=== PATIENT | female | born 1975 | race Two or more races ===

== ENCOUNTER 2024-01-18 10:16 | Outpatient (CLI) | payer OTHER | END 2024-01-18 10:28 | disposition home or self-care (01) | LOC: TOM 10:16 | PROVIDERS: ATTEND Internal Medicine Gastroenterology | DX: I50.42 Chronic combined systolic (congestive) and diastolic (congestive) heart failure (principal); C55 Malignant neoplasm of uterus, part unspecified; Z12.11 Encounter for screening for malignant neoplasm of colon ==

== ENCOUNTER 2024-09-23 10:15 | Inpatient (IN) | payer OTHER ==
[~2024-09-23] VITALS: Ht 162.6 cm; Wt 78.5 kg
[2024-09-23 12:50] VITALS: BP 108/75
[2024-09-23] MEDS ORDERED: CYMBALTA30 MG PO (12:51)
[2024-09-23] MEDS ORDERED: SYNTHROID112 MCG PO (12:51)
[2024-09-23] MEDS ORDERED: SYNTHROID100 MCG PO (12:51)
[2024-09-23] MEDS ORDERED: METFORMIN HCL1000 MG (12:52)
[2024-09-23] MEDS ORDERED: LANOXIN125 MCG PO (12:52)
[2024-09-23] MEDS ORDERED: CARVEDILOL25 MG (12:52)
[2024-09-23] MEDS ORDERED: CAROSPIR25 MG/5 ML PO (12:53)
[2024-09-23] MEDS ORDERED: COZAAR100 MG PO (12:53)
[2024-09-23] MEDS ORDERED: AMLODIPINE-OLM1 EAC3 (12:53)
[2024-09-23] MEDS ORDERED: LIPITOR40 MG PO (12:54)
[2024-09-23] MEDS ORDERED: ZETIA10 MG PO (12:54)
[2024-09-23] MEDS ORDERED: HYDROCHLOROTHIA25 MG PO (12:54)
[2024-09-23] MEDS ORDERED: NOXIFOL-D32500 UNIT (12:55)
[2024-09-23 17:26] LABS: RH POSITIVE
[2024-09-25] MEDS ORDERED: POVIDONE-IODINE 118 ML BOTT TOP ONE (10:49)
[2024-09-25] MEDS ORDERED: CEFAZOLIN SODIUM 1,000 MG VIAL ONE ×2 (10:49→16:16)
[2024-09-25] MEDS ORDERED: HEMOSTATIC MATRIX WITH THROMBIN KIT TOP ONE (10:49)
[2024-09-25] MEDS ORDERED: METRONIDAZOLE/SODIUM CHLORIDE 500 MG/100 ML PIGGYBACK IV ONE ×2 (12:00→16:17)
[2024-09-25] MEDS ORDERED: CEFAZOLIN SODIUM 1,000 MG VIAL IV ONE (12:00)
[2024-09-25] MEDS ORDERED: HEMOSTATIC MATRIX WITH THROMBIN KIT TOP SCH (12:00)
[2024-09-25] MEDS ORDERED: OxyCODONE HCL 5 MG TABLET (ROXICODONE) PO PRN (13:00)
[2024-09-25] MEDS ORDERED: MORPHINE SULFATE 4 MG/ML CARTRIDGE IV PRN (13:00)
[2024-09-25] MEDS ORDERED: RINGERS SOLUTION,LACTATED 1,000 ML IV SCH (13:00)
[2024-09-25] MEDS ORDERED: SIMETHICONE 125 MG CAPSULE PO SCH (13:00)
[2024-09-25] MEDS ORDERED: MORPHINE SULFATE 4 MG/ML VIAL IV ONE ×2 (14:40→15:40)
[2024-09-25 15:05] LABS: HEMATOCRIT 33.9 % (36.0-45.00); HEMOGLOBIN 11.3 g/dL (12.0-15.00); MEAN CELL VOLUME 86.1 fL (80.00-100.00); MEAN CORPUSCULAR HEMOGLOBIN 28.6 pg (27.00-32.0); MEAN CORPUSCULAR HGB CONC 33.3 g/dl (32.0-36.0); PLATELET COUNT 235 K/uL (150-450); RED BLOOD COUNT 3.93 M/uL (4.00-6.00); RED CELL DISTRIBUTION WIDTH 15.1 % (11.5-14.5)
[2024-09-25 15:30] LABS: ALBUMIN 3.7 gm/dL (3.4-5.0); CALCIUM 9.7 mg/dL (8.5-10.1); GFR 58.69; PHOSPHOROUS 3.8 mg/dL (2.5-4.9); POTASSIUM 4.18 mEq/L (3.5-5.1)
[2024-09-25] MEDS ORDERED: GABAPENTIN 300 MG CAPSULE PO ONE (16:16)
[2024-09-25] MEDS ORDERED: SIMETHICONE 125 MG CAPSULE PO ONE (16:16)
[2024-09-25] MEDS ORDERED: DEXTROSE 50 % IN WATER 0.5 G/ML DISP.SYRIN IV PRN (16:45)
[2024-09-25] MEDS ORDERED: INSULIN LISPRO 1,000 UNIT/10 ML UNITS SUBCUTANEO PRN (16:45)
[2024-09-25] MEDS ORDERED: CEFAZOLIN SODIUM 1,000 MG VIAL IV SCH (17:00)
[2024-09-25] MEDS ORDERED: METRONIDAZOLE/SODIUM CHLORIDE 500 MG/100 ML PIGGYBACK IV SCH (17:00)
[2024-09-25] MEDS ORDERED: GABAPENTIN 300 MG CAPSULE PO SCH (17:00)
[2024-09-25 17:20] VITALS: BP 124/81; O2SAT 99
[2024-09-25] MEDS ORDERED: KETOROLAC TROMETHAMINE 30 MG VIAL IM SCH (18:00)
[2024-09-25] MEDS ORDERED: FAMOTIDINE/PF 20 MG/2 ML VIAL IV PUSH SCH (21:00)
[2024-09-26] VITALS: BP 139/80; O2SAT 99
[2024-09-26 08:00] VITALS: BP 135/86; O2SAT 98
[2024-09-26] MEDS ORDERED: ENOXAPARIN SODIUM 40 MG/0.4 ML SYRINGE SUBCUTANEO SCH (09:00)
[2024-09-26 09:32] LABS: HEMATOCRIT 28.7 % (36.0-45.00); MEAN CELL VOLUME 85.6 fL (80.00-100.00); MEAN CORPUSCULAR HGB CONC 34.6 g/dl (32.0-36.0); PLATELET COUNT 217 K/uL (150-450); RED BLOOD COUNT 3.35 M/uL (4.00-6.00); RED CELL DISTRIBUTION WIDTH 14.9 % (11.5-14.5)
[2024-09-26 09:49] LABS: HEMOGLOBIN 9.9 g/dL (12.0-15.00); MEAN CORPUSCULAR HEMOGLOBIN 29.5 pg (27.00-32.0)
[2024-09-26 10:44] LABS: ALBUMIN 3.1 gm/dL (3.4-5.0); CALCIUM 8.6 mg/dL (8.5-10.1); CREATININE SERUM 0.82 mg/dL (0.55-1.02); GFR 73.79; PHOSPHOROUS 4.8 mg/dL (2.5-4.9); POTASSIUM 4.12 mEq/L (3.5-5.1)
[2024-09-26 16:00] VITALS: BP 107/70; O2SAT 97
[2024-09-26] MEDS ORDERED: CARVEDILOL 25 MG TABLET PO SCH (17:00)
[2024-09-26] MEDS ORDERED: SOD FERRIC GLUC COMPLX/SUCROSE 62.5 MG in 0.9 % SODIUM CHLORIDE 50 ML IV SCH (17:00)
[2024-09-27 01:21] VITALS: BP 103/67; O2SAT 100
[2024-09-27] MEDS ORDERED: LEVOTHYROXINE SODIUM 100 MCG TABLET PO SCH (06:00)
[2024-09-27 08:00] VITALS: BP 108/71; O2SAT 95
[2024-09-27] MEDS ORDERED: AMLODIPINE BESYLATE 10 MG TABLET PO SCH (09:00)
[2024-09-27] MEDS ORDERED: Duloxetine HCl 30 MG CAPSULE.DR PO SCH (09:00)
[2024-09-27] MEDS ORDERED: DIGOXIN 0.125 MG TABLET PO SCH (09:00)
[2024-09-27] MEDS ORDERED: SPIRONOLACTONE 25 MG TABLET PO SCH (09:00)
[2024-09-27] MEDS ORDERED: LOSARTAN POTASSIUM 100 MG TABLET PO SCH (09:00)
== END 2024-09-27 14:52 | disposition home or self-care (01) | DRG 740 ==
LOC: O/R 09-25 09:23 → SURG 09-25 09:23 → SURH 09-25 10:15 → SURG 09-25 15:25 → SURH 09-25 18:15 → SURG 09-27 14:52
PROVIDERS: ADMIT Obstetrics & Gynecology Gynecologic Oncology; ATTEND Obstetrics & Gynecology Gynecologic Oncology
PROC: 0UT70ZZ Resection of Bilateral Fallopian Tubes, Open Approach (ICD-10-PCS; 2024-09-25)
PROC: 0UT20ZZ Resection of Bilateral Ovaries, Open Approach (ICD-10-PCS; 2024-09-25)
PROC: 07BC0ZZ Excision of Pelvis Lymphatic, Open Approach (ICD-10-PCS; 2024-09-25)
PROC: 0DNW0ZZ Release Peritoneum, Open Approach (ICD-10-PCS; 2024-09-25)
PROC: 0DTJ0ZZ Resection of Appendix, Open Approach (ICD-10-PCS; 2024-09-25)
PROC: 0DBU0ZZ Excision of Omentum, Open Approach (ICD-10-PCS; 2024-09-25)
PROC: 0UT90ZZ Resection of Uterus, Open Approach (ICD-10-PCS; principal; 2024-09-25 18:15)
DX: C54.1 Malignant neoplasm of endometrium (principal); C77.5 Secondary and unspecified malignant neoplasm of intrapelvic lymph nodes; K56.50 Intestinal adhesions [bands], unspecified as to partial versus complete obstruction; K38.8 Other specified diseases of appendix; R93.5 Abnormal findings on diagnostic imaging of other abdominal regions, including retroperitoneum